=== PATIENT | female | born 1960 | race Caucasian/White ===

== ENCOUNTER 2016-06-19 17:15 | Observation (INO) | payer BC ==
[~2016-06-19] VITALS: Ht 160 cm; Wt 79.1 kg
[~2016-06-19 17:15] MED LIST: ABIL5TAB6 PO; AMLO5TAB22 PO; ATEN-102 PO; ATOR20TA PO; FENT50DI T-DERMAL; LORA1TAB PO; METH500T3 PO; OXYC-360 PO; PROT40TA PO; ZOFR4TAB3 SL
[2016-06-19 17:18] VITALS: BP 130/70; PULSE 70; RESP 20; TEMP 97.6; O2SAT 98
[2016-06-19 17:20] VITALS: BP 130/70; PULSE 63; RESP 16; TEMP 97.6; O2SAT 98
[2016-06-19 17:33] LABS: MEAN CORPUSCULAR HGB CONC 29.7 % (32.0-36.0)
--- NOTE | 2016-06-19 17:51 | RADRPT ---
EXAM DATE/TIME: 06/19/2016 17:44 [place] COMPARISON: Report only CHEST SINGLE AP, March 21, 2012, 3:43. INDICATIONS : Upper left chest pain and palpitations. MEDICAL HISTORY : Chronic obstructive pulmonary disease. SURGICAL HISTORY : None. ENCOUNTER: Initial ACUITY: 3 weeks PAIN SCORE: 8/10 LOCATION: Bilateral chest FINDINGS: A single view of the chest demonstrates the lungs to be symmetrically aerated without evidence of mas s, infiltrate or effusion. The cardiomediastinal contours are unremarkable. Osseous structures are intact. CONCLUSION: No evidence of acute cardiopulmonary disease. Jens Brand MD on June 19, 2016 at 17:48 Board Certified Radiologist. This report was verified electronically.
[2016-06-19 18:13] LABS: AUTOMATED NEUTROPHIL # 2.4 TH/MM3 (1.8-7.7); BASOPHIL # 0.1 TH/MM3 (0-0.2); BASOPHIL % 2.4 % (0.0-2.0); EOSINOPHIL % 0.9 % (0.0-4.0); HEMATOCRIT 30.8 % (35.0-46.0); LYMPH % 21.1 % (9.0-44.0); LYMPHOCYTE # 0.8 TH/MM3 (1.0-4.8); MEAN CELL VOLUME 75.1 FL (80.0-100.0); MEAN CORPUSCULAR HEMOGLOBIN 22.3 PG (27.0-34.0); MONO % 12.8 % (0.0-8.0); NEUT % 62.8 % (16.0-70.0); PLATELET COUNT 317 TH/MM3 (150-450); RED CELL DISTRIBUTION WIDTH 20.3 % (11.6-17.2); WHITE BLOOD COUNT 3.8 TH/MM3 (4.0-11.0)
[2016-06-19 18:18] LABS: HEMO FLAGS AUTO DIFF
[2016-06-19] MEDS: RESP: ALBUTEROL 2.5 MG/IPRATROPIUM 0.5 MG NEB (SCH) INH ×2 (18:20→18:21)
--- NOTE | 2016-06-19 18:38 | PD ---
HPI Chief Complaint: General Weakness Time Seen by Provider: 17:58 Travel History International Travel<30 days: No Contact w/Intl Traveler<30days: No Traveled to known affect area: No History of Present Illness HPI 55 year-old female notes diarrhea and generalized weakness over the past month. 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 They are monitoring it and she is not a candidate yet for surgery. 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 She does note shortness of breath. She denies other concurrent complaints. Quality is tired. Severity is all over. Duration is progressive over a month. PFSH Past Medical History Arthritis: Yes (RHEUMATOID ARTHRITIS HANDS, C4/C6 DEGENERATIVE DISEASE) Asthma: Yes Autoimmune Disease: Yes (RHEUMATOID ARTHRITIS. ) Anxiety: No Depression: Yes Heart Rhythm Problems: No Cancer: No Cardiovascular Problems: Yes (HEART ATTACK ) High Cholesterol: Yes Chemotherapy: No Chest Pain: No Congestive Heart Failure: No COPD: Yes Cerebrovascular Accident: No Diabetes: No Endocrine: No Fibromyalgia: Yes GERD: No Genitourinary: No Hiatal Hernia: No Hypertension: Yes Immune Disorder: No Kidney Stones: No Musculoskeletal: Yes (FIBROMYALGIA) Neurologic: No Psychiatric: No Reproductive: Yes (HYSTERECTOMY R/T OVARIAN CYSTS. ) Respiratory: Yes (COPD) Migraines: Yes Pneumonia: Yes Radiation Therapy: No Renal Failure: No Seizures: No Sleep Apnea: Yes (B-PAP WHEN NEEDED) Thyroid Disease: No Ulcer: No Tetanus Vaccination: > 5 Years Influenza Vaccination: No ?: Not Menopausal: Yes Past Surgical History Abdominal Surgery: No AICD: No Arteriovenous Shunt: No Cardiac Surgery: No Cholecystectomy: Yes (2016) Ear Surgery: No Endocrine Surgery: No Eye Surgery: No Genitourinary Surgery: No Gynecologic Surgery: Yes (HYSTERECTOMY, CYST ON OVARY) Hysterectomy: Yes Insulin Pump: No Joint Replacement: Yes (SCREW LEFT FOOT FROM FX) Oral Surgery: No Pacemaker: No Thoracic Surgery: No Tonsillectomy: Yes Other Surgery: Yes (OVARIAN CYST, SINUS SURGERY) Social History Alcohol Use: Yes (OCCASSIONAL ) Tobacco Use: Yes Substance Use: No Allergies-Medications (Allergen,Severity, Reaction): Coded Allergies: Iodine (Verified Allergy, Severe, HIVES, 07/10/15) Penicillin (Verified Allergy, Severe, HIVES, 07/10/15) Reported Meds & Prescriptions Reported Meds & Active Scripts Active Reported Lorazepam 1 Mg Tab 1 Mg PO BID PRN Restoril (Temazepam) 15 Mg Cap 15 Mg PO HS PRN Diclofenac Topical 1% Gel 1 Applic TOPICAL BID PRN Percocet (Oxycodone-Acetaminophen) 10-325 mg Tab 1 Tab PO Q6H PRN Tizanidine (Tizanidine HCl) 4 Mg Cap 4 Mg PO Q6HR PRN Ferrous Sulfate 325 Mg Tab 325 Mg PO TID Flonase Nasal Assaria (Fluticasone Nasal Assaria) 50 Mcg/Act Assaria 2 Assaria EACH NARE DAILY Bactrim (Sulfamethoxazole-Trimethoprim) 400-80 Mg Tab 1 Tab PO BID Sulfacetamide Opth Drops 10 % Soln 1 Drop EACH EYE QID Review of Systems Except as stated in HPI: all other systems reviewed are Neg Physical Exam Narrative GENERAL: Well-nourished, well-developed patient. Well-appearing SKIN: Warm and dry. HEAD: Normocephalic and atraumatic. EYES: No injection or drainage. ENT: No nasal drainage noted. NECK: Supple, trachea midline. CARDIOVASCULAR: Regular rate and rhythm RESPIRATORY: Expiratory wheezing bilaterally. No accessory muscle use. GASTROINTESTINAL: Abdomen soft, non-tender, nondistended. NEUROLOGICAL: Awake and alert. Motor and sensory grossly within normal limits. Normal speech. Data Data Last Documented VS Vital Signs Date Time Temp Pulse Resp B/P Pulse Ox O2 Delivery O2 Flow Rate FiO2 06/19/16 18:49 75 16 103/57 97 Room Air 06/19/16 17:20 97.6 Orders Complete Blood Count With Diff (06/19/16 17:31) Basic Metabolic Panel (Bmp) (06/19/16 17:31) Chest, Single Ap (06/19/16 ) Iv Access Insert/Monitor (06/19/16 17:31) Ecg Monitoring (06/19/16 17:31) Oximetry (06/19/16 17:31) Albuterol-Ipratropium Neb (Duoneb Neb) (06/19/16 18:15) Sodium Chlor 0.9% 1000 Ml Inj (Ns 1000 M (06/19/16 19:00) Methylprednisolone So Succ Inj (Solumedr (06/19/16 19:00) Albuterol-Ipratropium Neb (Duoneb Neb) (06/19/16 19:00) Admit Order (Ed Use Only) (06/19/16 19:00) Labs Laboratory Tests Test 06/19/16 17:45 White Blood Count 3.8 TH/MM3 Red Blood Count 4.10 MIL/MM3 Hemoglobin 9.1 GM/DL Hematocrit 30.8 % Mean Corpuscular Volume 75.1 FL Mean Corpuscular Hemoglobin 22.3 PG Mean Corpuscular Hemoglobin 29.7 % Concent Red Cell Distribution Width 20.3 % Platelet Count 317 TH/MM3 Mean Platelet Volume 7.8 FL Neutrophils (%) (Auto) 62.8 % Lymphocytes (%) (Auto) 21.1 % Monocytes (%) (Auto) 12.8 % Eosinophils (%) (Auto) 0.9 % Basophils (%) (Auto) 2.4 % Neutrophils # (Auto) 2.4 TH/MM3 Lymphocytes # (Auto) 0.8 TH/MM3 Monocytes # (Auto) 0.5 TH/MM3 Eosinophils # (Auto) 0.0 TH/MM3 Basophils # (Auto) 0.1 TH/MM3 CBC Comment AUTO DIFF Differential Total Cells 100 Counted Neutrophils % (Manual) 53 % Band Neutrophils % 10 % Lymphocytes % 23 % Monocytes % 11 % Eosinophils % 1 % Basophils % 2 % Neutrophils # (Manual) 2.4 TH/MM3 Differential Comment FINAL DIFF MANUAL Platelet Estimate NORMAL Platelet Morphology Comment NORMAL Sodium Level 142 MEQ/L Potassium Level 4.3 MEQ/L Chloride Level 120 MEQ/L Carbon Dioxide Level 16.0 MEQ/L Anion Gap 6 MEQ/L Blood Urea Nitrogen 20 MG/DL Creatinine 1.62 MG/DL Estimat Glomerular Filtration 33 ML/MIN Rate Random Glucose 97 MG/DL Calcium Level 8.1 MG/DL [facility] Medical Decision Making Medical Screen Exam Complete: Yes Emergency Medical Condition: Yes Medical Record Reviewed: Yes (past history confirmed) Interpretation(s) CBC & BMP Diagram 06/19/16 17:45 Last 24 hours Impressions Chest X-Ray 06/19/16 0000 Signed Impressions: Service Date/Time: June 17:44 - CONCLUSION: No evidence of acute cardiopulmonary disease. Jens Brand MD Differential Diagnosis Anemia, renal failure, COPD exacerbation, pneumonia, gastroenteritis, colitis.... Narrative Course Will check blood work, chest x-ray and dose with DuoNeb's and reevaluate Patient with decreased bicarbonate of 16, mild elevation in BUN and creatinine creatinine and mild anemia. Patient is still wheezing. She'll be admitted for steroids, nebulizer treatments and IV fluid hydration. Patient agrees to this plan of care. Physician Communication Physician Communication dr garrett agrees to admit Diagnosis Primary Impression: COPD exacerbation Additional Impressions: Renal insufficiency Diarrhea Qualified Code: R19.7 - Diarrhea, unspecified type Weakness Anemia Qualified Code: D64.9 - Anemia, unspecified type Admitting Information Admitting Physician Requests: Observation Shabana Khanna MD June 19, 2016 18:38
[2016-06-19] MEDS ORDERED: SULF10SO3 EACH EYE (18:42)
[2016-06-19] MEDS ORDERED: TIZA4CAP3 PO (18:42)
[2016-06-19] MEDS ORDERED: DICL1GEL7 TOPICAL (18:42)
[2016-06-19] MEDS ORDERED: REST15CA PO (18:42)
[2016-06-19] MEDS ORDERED: PERC10TA27 PO (18:42)
[2016-06-19] MEDS ORDERED: BACT400T PO (18:42)
[2016-06-19] MEDS ORDERED: LORA1TAB12 PO (18:42)
[2016-06-19] MEDS ORDERED: FLUT1SPR5 EACH NARE (18:42)
[2016-06-19] MEDS ORDERED: FERR325T PO (18:42)
[2016-06-19 18:49] VITALS: BP 103/57; PULSE 75; RESP 16; O2SAT 97
[2016-06-19 18:49] LABS: POTASSIUM 4.3 MEQ/L (3.5-5.1)
[2016-06-19] MEDS ORDERED: SODIUM CHLOR 0.9% 1000 ML INJ 1,000 ML IV ONE (19:00)
[2016-06-19] MEDS ORDERED: RESP: ALBUTEROL 2.5 MG/IPRATROPIUM 0.5 MG NEB (SCH) INH ONE (19:00)
[2016-06-19] MEDS ORDERED: methylPREDNISolone SOD SUCC 125 MG/2 ML VIAL IVP ONE (19:00)
[2016-06-19 19:15] LABS: BANDS 10 % (0-6); BASOPHILS 2 % (0-2); EOSINOPHILS 1 % (0-4); NEUTROPHIL # MANUAL DIFF 2.4 TH/MM3 (1.8-7.7); POLYS (SEG NEUTROPHILS) 53 % (16-70); WBC DIFF SAMPLE 100
[2016-06-19 19:16] LABS: PLATELET ESTIMATE SMEAR NORMAL (NORMAL); PLATELET MORPHOLOGY NORMAL (NORMAL); SCAN/DIFF FINAL DIFF MANUAL
[2016-06-19] MEDS ORDERED: methylPREDNISolone SOD SUCC 40 MG/1 ML VIAL IV PUSH SCH (20:00)
[2016-06-19] MEDS ORDERED: TEMAZEPAM 15 MG CAP PO PRN (20:00)
[2016-06-19] MEDS ORDERED: RESP: ALBUTEROL 2.5 MG/IPRATROPIUM 0.5 MG NEB (SCH) NEB (20:00)
[2016-06-19] MEDS ORDERED: LORazepam 1 MG TAB PO PRN (20:00)
[2016-06-19] MEDS ORDERED: oxyCODONE/ACETAMINOPHEN 10 MG/325 MG TAB PO PRN (20:00)
[2016-06-19] MEDS ORDERED: SODIUM CHLOR 0.9% 1000 ML INJ 1,000 ML IV SCH (20:00)
[2016-06-19 20:59] VITALS: BP 110/75
[2016-06-19] MEDS ORDERED: LEVOFLOXACIN 500 MG PREMIX INJ 100 ML IV SCH (21:00)
[2016-06-19] MEDS ORDERED: SULFACETAMIDE SODIUM 10% OPTH SOLN 15 ML BTL EACH EYE SCH (21:00)
[2016-06-19] MEDS ORDERED: FAMOTIDINE 20 MG TAB PO SCH (21:00)
== END 2016-06-19 21:00 | disposition left against medical advice (07) ==
LOC: NEPC 17:15 → NEDA 19:05
PROVIDERS: ADMIT Specialist; ATTEND Specialist
DX: J44.1 Chronic obstructive pulmonary disease with (acute) exacerbation (principal); N28.9 Disorder of kidney and ureter, unspecified; R19.7 Diarrhea, unspecified; D64.9 Anemia, unspecified; M79.7 Fibromyalgia; M06.842 Other specified rheumatoid arthritis, left hand; M06.841 Other specified rheumatoid arthritis, right hand; M50.322 Other cervical disc degeneration at C5-C6 level; F32.9 Major depressive disorder, single episode, unspecified; E78.00 Pure hypercholesterolemia, unspecified; I10 Essential (primary) hypertension; F17.200 Nicotine dependence, unspecified, uncomplicated; Z88.0 Allergy status to penicillin; Z91.041 Radiographic dye allergy status; Z79.51 Long term (current) use of inhaled steroids
CPT/HCPCS: 71010; 80048; 85007; 85027; 94640; 94664; 99285; G0378; J2930; J7030